=== PATIENT | female | born 1980 | race Caucasian/White ===

== ENCOUNTER 2020-06-24 14:48 | Emergency (ER) | payer OTHER ==
[~2020-06-24] VITALS: Ht 167.6 cm; Wt 78.5 kg
--- NOTE | 2020-06-24 15:03 | NUR ---
CALLED TO TRIAGE NO ANSWER.
--- NOTE | 2020-06-24 15:12 | NUR ---
CALLED TO TRIAGE NO ANSWER.
--- NOTE | 2020-06-24 15:29 | NUR ---
JORGE ALBERTO- SON [phone] [place] [phone]
[2020-06-24] MEDS ORDERED: LORAZEPAM 1 MG TABLET ONE (15:40)
[2020-06-24] MEDS ORDERED: IBUPROFEN 600 MG TABLET ONE (15:40)
--- NOTE | 2020-06-24 15:49 | NUR ---
Patient awake alert non distress noted able to ambulatory vitals taken and filed patient agrees to see PMD in 1 day ,prescription given to patient .
--- NOTE | 2020-06-24 15:51 | NUR ---
Patient discharged to home in stable condition. Written and verbal after care instructions given. Patient verbalizes understanding of instruction.
--- NOTE | 2020-06-24 15:53 | NUR ---
Patient is steady gate non difficulties .
--- NOTE | 2020-06-24 15:54 | NUR ---
PT SPOKE TO AURY AND CONFIRMED THAT HE WILL SEND AN UBER TO PICK HER UP FROM THE HOSPITAL
[2020-06-24] MEDS ORDERED: IBUPROFEN 600 MG TABLET PO ONE (16:00)
[2020-06-24] MEDS ORDERED: LORAZEPAM 1 MG TABLET PO ONE (16:00)
--- NOTE | 2020-06-24 16:15 | NUR ---
Patient stated her Mom is here with uber noted patient is staedy gate alert orreinted .
[2020-06-24 16:16] VITALS: BP 134/67
--- NOTE | 2020-06-24 16:17 | NUR ---
Patient discharged to home in stable condition. Written and verbal after care instructions given. Patient verbalizes understanding of instruction.
== END 2020-06-24 16:17 | disposition home or self-care (01) ==
LOC: ER 14:51
DX: F19.10 Other psychoactive substance abuse, uncomplicated (principal); F10.239 Alcohol dependence with withdrawal, unspecified; F41.9 Anxiety disorder, unspecified; Z59.0 Homelessness; Y90.9 Presence of alcohol in blood, level not specified